=== PATIENT | female | born 1975 | race Caucasian/White ===

== ENCOUNTER 2022-03-28 08:53 | Outpatient (CLI) | payer OTHER, SELFPAY ==
[2022-03-28 10:38] LABS: Cholesterol* 304 mg/dL (90-199); Glucose* 113 mg/dL (60-115)
[2022-03-28 10:39] LABS: HDL Cholesterol* 53 mg/dL (>=50); LDL Cholesterol Calculated 190 mg/dL (<100); Triglycerides* 307 mg/dL (40-149)
[2022-03-28 11:22] LABS: HIV 1/2/P24 Combo Screen* Negative (Negative)
[2022-03-28 12:07] LABS: Chlamydia DNA Amplified* NOT DETECTED (No Detected); GC DNA Amplified* NOT DETECTED (No Detected)
[2022-03-30 00:16] LABS: Rapid Plasma Reagin (RPR) Non Reactive (Non Reactive)
== END 2022-03-28 08:54 | disposition home or self-care (01) ==
PROVIDERS: Visit Provider Registered Nurse
DX: Z01.419 Encounter for gynecological examination (general) (routine) without abnormal findings (principal); R53.83 Other fatigue; Z11.3 Encounter for screening for infections with a predominantly sexual mode of transmission; Z13.1 Encounter for screening for diabetes mellitus; Z13.29 Encounter for screening for other suspected endocrine disorder; Z13.6 Encounter for screening for cardiovascular disorders
CPT/HCPCS: 80061; 82947; 84443; 86592; 86703; 87491; 87591